=== PATIENT | female | born 1945 | race Caucasian/White ===

== ENCOUNTER 2016-12-31 08:59 | Day surgery (SDC) | payer MEDICARE ==
[2016-12-31] VITALS (16 sets, daily range): BP systolic 91–138; BP diastolic 42–80; PULSE 57–87; RESP 12–21; O2SAT 92–100
[~2016-12-31] VITALS: Ht 157.5 cm; Wt 78.8 kg
[~2016-12-31 08:59] MED LIST: ATRV10T PO; LOSA50TA37 PO
[2016-12-31] MEDS ORDERED: Dexamethasone 4 mg/mL Inj ONE (09:00)
[2016-12-31] MEDS ORDERED: Neostigmine 1 mg/mL 10 mL Inj ONE (09:00)
[2016-12-31] MEDS ORDERED: MetoCLOpramide 5 mg/mL 2 mL Inj ONE (09:00)
[2016-12-31] MEDS ORDERED: Ondansetron 2 mg/mL 2 mL Inj ONE (09:00)
[2016-12-31] MEDS ORDERED: Rocuronium 10 mg/mL 5 mL Inj ONE (09:00)
[2016-12-31] MEDS ORDERED: fentaNYL-PF 50 mCg/mL 2 mL Inj ONE (09:00)
[2016-12-31] MEDS ORDERED: Glycopyrrolate 0.2 MG/ML 1mL Inj ONE (09:00)
[2016-12-31] MEDS ORDERED: Propofol 10,000 mCg/mL 20 mL Inj ONE (09:00)
[2016-12-31] MEDS: Lactated Ringer's 1,000 ML IV SCH ×2 (09:04→10:33)
[2016-12-31] MEDS ORDERED: Lactated Ringer's 500 ML IV PRN (10:21)
[2016-12-31] MEDS ORDERED: Lactated Ringer's 1,000 ML IV SCH (10:21)
--- NOTE | 2016-12-31 10:22 | PCM.HPANE ---
Patient Data Surgeon Admitting Provider: Attending Provider:Xavier Medeiros MD Primary Care Physician:Alicia Sow MD Other Provider[place] Reason for Visit Gallstones Ht/WT & BMI Height (Feet): 5 Height (Inches): 2.00 Weight (Kilograms): 78.800 Body Mass Index 31.00 Allergies Uncoded Allergies: NSAID (Allergy, Intermediate, WHEEZING, 12/31/16) Past Anesthesia History Anesthesia History: Denies:: Abnormal Airway, Anesthesia Reactions, Difficult Intubation, Fam Anesthesia Reaction Diabetes History Hx Diabetes?: No MRSA MRSA: No Medications Hypertension Medication: Yes Home Meds Incl Beta Cristofer: No Reported Medications Losartan Potassium 50 Mg [id number] Mg PO DAILY 12/30/16 Atorvastatin (Lipitor)10 Mg Tab10 Mg PO DAILY Ref 0 12/30/16 History HEENT History: Positive for:: Sinus Problem (chronic sinus from [place]) Denies:: Abnormal Airway Cataracts Difficult Intubation Dysphagia Glaucoma Hearing Problem TMJ Cardiovascular History: Positive for:: Hypertension Denies:: AICD Abdominal Aortic Aneurism Atrial Fibrillation Cardiac Surgery Chest Pain Heart Murmur Irregular Heartbeat Pacemaker Peripheral Vascular Hx of Respiratory Problem?: Yes Respiratory History: Positive for:: Asthma (occasional ) Pneumonia (remote hx of ) Denies:: COPD Emphysema Oxygen Administration Tuberculosis (father had TB- negative testing) Use of C-PAP Machine Use of Inhalers / NEBS Hx Neurologic Problems?: Yes Neurological History: Denies:: Alzheimer's Disease CVA Dementia Dizziness Headaches Multiple Sclerosis Parkinson's Disease Seizures TIA Other Neurological Pertinent: hx of cerebral aneurysm repaired at [facility]- 2009. No reported residual sx Hx of GI Problems?: Yes Gastrointestinal History: Positive for:: Gall Bladder Disease (current admission problem) Denies:: Cirrhosis Gastroesphageal Reflux Gastrointestinal Bleeding Heartburn Hepatitis Hiatal Hernia Liver Disease Hx of Problems?: No Genitourinary History: Denies:: Kidney Stones Urinary Tract Infection Female Hx: Positive for:: Problems with Breasts? (left breast mastectomy cancer ) Denies:: Currently Skin History: Denies:: History Skin Disorders? Pressure Ulcers Hx Musculoskeletal Problems?: No Musculoskeletal History: Denies:: Back Injury Fibromyalgia Joint Replacement Musculoskeletal Trauma Myasthenia Gravis Osteoarthritis Hx of Psycho/Social Problems?: No Psycho Social History: Denies:: Anxiety Hx Depression Hx Surgeries?: Yes (brain aneurysm, mastectomy, tubal ) Hx Any Other Health Problems?: Yes Other History: Positive for:: Cancer (left breast) Denies:: Thyroid Disease History Blood Transfusions: Positive for:: Accept Blood Products? Denies:: Blood Transfusions Hx Diabetes: No Hx Alcohol Use: YesAlcoholic Drinks Per Day: couple of glasses wine on weekendsHx Substance Use: NoHave You Smoked inLast 12 mo: No Stop/Bang Treated for Sleep Apnea?: No Do You Have a CPAP Machine?: No S-Snoring: Do You Snore Loudly: No T-Tired: feel tired, fatigued: No O-Obsered: Observed not breath: No P-Blood Pressure: treated: Yes B- Body Mass Index > 35 kg/m2: No A- Age over 50: Yes N- Neck Large Circumference: No G- Gender Male: No YANDEL Total Score: 2 YANDEL Risk Assessment: Low Risk, <3 Yes Risk Assessment Category Category 1A: Patient has history of documented sleep apnea, and HAS NOT received any narcotic, sedative or anesthesia administration during this stay. Category 1B: Patient has history of documented sleep apnea, and HAS received any narcotic , sedative or anesthesia administration during this stay Category 2: Patient has SUSPECTED Obstructive Sleep Apnea, and HAS received any narcotic , sedative or anesthesia administration during this stay. Category 3: Patient has SUSPECTED Obstructive Sleep Apnea and HAS NOT received narcotic, sedative or anesthesia administration during this stay. Category 4: Outpatient in Procedural Areas with known sleep apnea or who screen positive for High Risk via the STOP/BANG questionnaire. Exam Exam Vital Signs Vital Signs Date Time Temp Pulse Resp B/P Pulse Ox O2 Delivery O2 Flow Rate FiO2 12/31/16 09:26 36.2 60 16 138/80 100 General Appearance: Oriented X3 HEENT/AIRWAY: MP 2 Lungs: Normal Air Movement Heart: Regular Rate/Rhythm Meds/Labs/Diagnostics Admission Meds Current Medications Lactated Ringer's (Lr) 1,000 ml @ 120 mls/hr Q8H20M IV Last administered on 09:04; Start 12/31/16 at 05:00; Stop 12/31/16 at 13:19 Gabapentin (Neurontin) 600 mg PREOP ONCE PO Last administered on 12/31/16 09: 44; Start 12/31/16 at 06:00; Stop 12/31/16 at 06:01; Status DC Acetaminophen (Tylenol) 650 mg PREOP ONCE PO Last administered on 12/31/16t 09 :44; Start 12/31/16 at 06:00; Stop 12/31/16 at 06:01; Status DC Plan Impression Patient chart reviewed, patient interviewed and anesthestic plan with risks, benefits, and alternatives discussed, and informed consent obtained. NPO Status: 0940 WATER WITH MEDS ASA Physical Status: ASA2 Mod Systemic Disease Anesthetic Plan: GA Bene/Risks/Altern/Consents: Yes HP Complete Prior to Induction: Yes Sandeep Pugh MD Dec 31, 2016 10:21
[2016-12-31] MEDS ORDERED: Ondansetron 2 mg/mL 2 mL Inj IVPUSH PRN (10:25)
[2016-12-31] MEDS ORDERED: fentaNYL-PF 50 mCg/mL 2 mL Inj IVPUSH PRN (10:25)
[2016-12-31] MEDS ORDERED: EPHEDrine Sulfate 50 mg/mL Inj IVPUSH PRN (10:25)
[2016-12-31] MEDS ORDERED: Dexamethasone 4 mg/mL Inj IVPUSH PRN (10:25)
[2016-12-31] MEDS ORDERED: HYDROmorphone 1 mg/mL Inj IVPUSH PRN (10:25)
[2016-12-31] MEDS ORDERED: MetoCLOpramide 5 mg/mL 2 mL Inj IVPUSH PRN (10:25)
[2016-12-31] MEDS ORDERED: Phenylephrine 10,000 mCg/mL Inj IVPUSH PRN (10:25)
[2016-12-31] MEDS ORDERED: Bupivacaine-MPF 0.25%/EPI 30 mL Inj INJ ONE (10:33)
--- NOTE | 2016-12-31 12:35 | PCM.ANEP2 ---
Post Anesthesia Evaluation ASA/CMS Post Anesthesia VS in Patient's Normal Range?: Yes Resp Stable; Airway Patent?: Yes CV Function & Hydration Stable: Yes Mental Status Recovered?: Yes Pain control Satisfactory?: Yes N/V Control Satisfactory?: Yes Sandeep Pugh MD Dec 31, 2016 12:35
--- NOTE | 2016-12-31 12:35 | PCM.ANEP1 ---
Post Anesthesia Phase 1 PACU Phase 1 Assessment Vital Signs Vital Signs Date Time Temp Pulse Resp B/P Pulse Ox O2 Delivery O2 Flow Rate FiO2 12/31/16 12:30 67 16 109/57 97 Nasal Cannula 4 12/31/16 12:25 36.2 65 20 108/60 95 Nasal Cannula 4 12/31/16 12:20 74 18 113/58 93 Nasal Cannula 4 12/31/16 12:15 65 19 111/53 100 Simple Mask 8 12/31/16 12:10 61 20 106/56 100 Simple Mask 8 12/31/16 12:05 57 21 104/53 100 Simple Mask 8 12/31/16 12:01 36.0 57 20 101/57 100 Simple Mask 8 12/31/16 09:26 36.2 60 16 138/80 100 Anesthetic Administered: GA Level of Alertness: Awake, talking Pain: No Nausea or Vomiting: No Airway Device: Oralpharangeal Airway Oxygen Delivery: Room Air Lungs: Normal Air Movement Sandeep Pugh MD Dec 31, 2016 12:34
[2016-12-31] MEDS: oxyCODONE-Acetamin 5-325 mg Tablet PO PRN ×2 (13:33→15:58)
--- NOTE | 2017-01-01 00:12 | OP ---
[address] [address] OPERATIVE REPORT PATIENT: CLARENCE VELARDE : 1945 MR#: [id number] ADMIT: 12/31/2016 JOB ID: [id number] DATE OF SURGERY: 12/31/2016 ANESTHESIA: General. PREOPERATIVE DIAGNOSIS(ES): Symptomatic cholelithiasis. POSTOPERATIVE DIAGNOSIS(ES): Chronic cholecystitis. OPERATIVE PROCEDURE: Laparoscopic cholecystectomy. SURGEON: Xavier Medeiros MD DIP FILLER: David Shelton PA-C COMPLICATIONS: None. ESTIMATED BLOOD LOSS: 20 mL. CONDITION: Satisfactory. SPECIMEN: Gallbladder. FINDINGS: The gallbladder was chronically inflamed making for a very difficult dissection. INDICATIONS/SIGNIFICANT HISTORY: The patient is a 71-year-old female, who has been having episodic right upper quadrant abdominal pain that has become progressive to the point that it occurs after any kind of meal. She had ultrasound that demonstrated cholelithiasis. She was referred to me, and I recommended a cholecystectomy. OPERATIVE TECHNIQUE: The patient was taken into the operating room and placed in the supine position. General anesthesia was administered. The abdomen was prepped and draped in a standard surgical fashion, and a procedural pause performed. Entry was gained into the abdomen through a supraumbilical incision using a 10 mm Optiview trocar. Pneumoperitoneum was achieved without complication. Local anesthetic was injected followed by insertion of 5-mm ports in the subxiphoid as well as two in the right upper quadrant. The gallbladder was grasped and dissection begun to achieve critical view of safety. The cystic plate was essentially eliminated with chronic inflammation making for a difficult dissection. The gallbladder was entered a number of times, also the liver was entered a number of times. Eventually we were able to achieve the critical view of safety. A single clip was placed on the artery, and this was taken with cautery. Three clips were then placed on the cystic duct, and this was transected sharply. The remainder of the dissection of the gallbladder off the cystic plate was then completed. Again, several times entering the gallbladder and other times entering the liver. There had been spillage of a number of stones. The EndoCatch bag was placed into the abdomen, and the gallbladder placed in this. The stones were tediously gathered and also placed in the bag. The bag was removed through the umbilical port site. The fascial incision had to be extended to accommodate the gallbladder and stones. About 15-20 minutes was then spent making sure there were no stones remaining and achieving hemostasis from the raw liver surface. Eventually good hemostasis was achieved. The surgical bed was copiously irrigated and found to be hemostatic. I placed FloSeal into the gallbladder fossa for good measure. The fascia at the umbilical site was then closed using 0 PDS suture with a laparoscopic suture passer. The lateral ports removed under direct visualization followed by release of pneumoperitoneum and removal of the remaining port. Skin was closed using 4-0 Monocryl. The entire procedure was well tolerated without complication. FLORINA
--- NOTE | 2017-01-04 11:03 | PATH ---
SURGICAL PATHOLOGY Attending Physician:Xavier Medeiros MD CASE STATUS: Signed Out PATIENT NAME: CLARENCE VELARDE PID: [id number] : 1945 DATE COLLECTED:12/31/2016 20:04 SPECIMEN: Gallbladder CLINICAL HISTORY: SYMPTOMATIC GALLSTONES 1). GALLBLADDER FINAL DIAGNOSIS: 1.GALLBLADDER, CHOLECYSTECTOMY: CHRONIC CHOLECYSTITIS WITH CHOLELITHIASIS. NO EVIDENCE OF DYSPLASIA OR MALIGNANCY. ICD10 CODE K80.60 GROSS DESCRIPTION: The specimen is received in one formalin filled container labeled with the patient's name, sublabeled "gallbladder" and consists of an opened 7.0 x 3.0 x 2.5 CM gallbladder. The serosa is smooth. The wall is 0.3-0.7 CM in thickness. The mucosa is a dark pink belle in color. The lumen contains approximately 40-50 light belle-brown multifaceted calculi which range in size from 0.3-0.5 CM in greatest dimension. 5 personal banking representative sections are submitted in one cassette. 12/31/2016 DAC MICRO DESCRIPTION: See diagnosis. ICD-9 CODES: CPT CODES: 1: 78015 Electronically Signed Out Miguelina Reed MD [facility] [address], [place] [address] Technical component performed at [facility], [facility] [address], [place], [address]
== END 2016-12-31 23:59 | disposition home or self-care (01) ==
LOC: SAS 08:59
PROVIDERS: ATTEND General Practice
DX: K80.10 Calculus of gallbladder with chronic cholecystitis without obstruction (principal); I10 Essential (primary) hypertension; E78.00 Pure hypercholesterolemia, unspecified; Z85.3 Personal history of malignant neoplasm of breast
CPT/HCPCS: 47562; J1100; J2405; J2710; J2765; J3010; J7120